=== PATIENT | male | born 1970 | race Caucasian/White ===

== ENCOUNTER 2024-05-22 07:03 | Emergency (ER) | payer OTHER, SELFPAY ==
[2024-05-22 07:07] VITALS: BP 123/76
[2024-05-22 07:22] VITALS: BP 127/80
[2024-05-22 07:26] VITALS: BP 131/82
--- NOTE | 2024-05-22 07:30 | ED.GENMED ---
History of Present Illness
General
Chief Complaint: Dizziness
Time Seen by Provider: 05/22/24 07:16
History of Present Illness
History of Present Illness:
53-year-old male with no known past medical history presents to the emergency department for evaluation of positional dizziness beginning this morning. He states his symptoms strike and whenever he stands up but resolved within a few seconds. No
falls today. Denies any new medications. Notes that he had some nausea and diarrhea earlier in the week but this is since resolved. No chest pain or shortness of breath. Denies any blurry or double vision, neck pain, extremity paresthesias, or
generalized weakness.
Past History
Past History
ED Past Medical History: Hypercholesterolemia and Other (Diverticulitis November 2010)
ED Past Surgical History: Appendectomy and Other (Hernia repair)
Social History
Tobacco: Former smoker
Alcohol: Occasional
Drug: None
Personal:
Living: with family
Employment: Employed
Family History
Family History: Other (Lung cancer, coronary artery disease)
Review of Systems
Review of Systems
Allergies reviewed?: Yes
All Other Systems: ROS reviewed and negative except as documented in HPI and ROS
Phy Exam
Physical Exam
Physical Exam:
GEN: Well appearing, NAD, WDWN
HEENT: Oral mucosa moist, no scleral icterus, no nasal congestion
Cardiac: Regular rate and rhythm, no murmurs
Lung: No respiratory distress, no tachypnea lungs clear to auscultation bilaterally
MSK: No gross deformity or injuries
Skin: Good color, no pallor or jaundice, no rashes
Neuro: AO x3; CN II-XII grossly intact. BUE strength 5/5 in all mari, sensation intact and symmetric. BLE strength 5/5 in all mari, sensation intact and symmetric. Normal [id number] and yuhn-[id number]-mxra. No nystagmus with head tilt test.
Slight instability immediately upon standing but gait is stable thereafter
Psych: Calm, cooperative
Course
Orders/Labs/Results
Orders:
Orders
05/22/24 07:11
Electrocardiogram (*1) Urgent
Reason for Study: Vertigo / Dizzy
EKG- Treatment ONCE
05/22/24 07:30
CT Head W/o Iv Contrast Urgent
Comment:
Reason For Exam: dizziness
0.9% Sodium Chloride 1000 ml [Nss] 1,000 ml IV BOLUS
05/22/24 07:36
Complete Blood Count/With Diff Urgent
Comprehensive Metabolic Panel Urgent
05/22/24 09:20
Orthostatic Vital Signs As Directed
Orthostatic VS Frequency: Daily
05/22/24 09:39
Meclizine [Antivert] 12.5 mg PO Q8HPRN PRN
Abnormal Lab Results
05/22/24
07:36
RBC 4.39 L 10^6/uL
(4.70-6.10)
MCH 32.3 H pg
(27.0-31.0)
BUN 36 H mg/dl
(9-20)
05/22/24 07:36
05/22/24 07:36
Vital Signs
Initial and Last Documented VS:
Initial Vital Signs
Temp Pulse Resp BP Pulse Ox
97.7 F 72 18 123/76 96
05/22/24 07:07 05/22/24 07:07 05/22/24 07:07 05/22/24 07:07 05/22/24 07:07
Last Documented Vital Signs
Temp Pulse Resp BP Pulse Ox
97.7 F 66 14 120/74 96
05/22/24 07:07 05/22/24 10:00 05/22/24 10:00 05/22/24 10:00 05/22/24 10:00
MDM/Problems Addressed
MDM/Problems Addressed:
Interestingly the patient is found to have a nonspecific lesion in the left cerebellum on head CT. Although this may not correlate with his symptoms which sound much more likely to represent positional peripheral vertigo, nevertheless we will admit
the patient for MRI of the brain and neurology consultation
Comment
Comment:
EKG independently interpreted by me shows normal sinus rhythm at a rate of [address] changes concerning for ischemia
*Critical Care Note
Total Time (30-74mins, 75-104mins- exclusive of procedures): Not Applicable
Update Note
Update Note:
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 Reviewed with hospitalist and neurology again, plan for
discharge and outpatient MRI
ED Attending Note
-
Portions of this chart may have been created with voice recognition software.� Occasional wrong word or��sound alike� substitutions may have occurred due to the inherent limitations of voice recognition software.
Discharge Plan
Departure
Patient Disposition: Home (Routine Discharge)
Date of Disposition: 05/22/24
Time of Disposition: 08:52
Patient with high blood pressure during this ER visit?: No
Discharge Problem:
Cerebellar lesion, Vertigo
Prescriptions:
New
meclizine 25 mg tablet
25 mg PO BID PRN (Reason: dizziness) Qty: 20 0RF
No Action
No Current Medications
0
Referrals:
Lexie Sorensen MD [Family Provider] -
Interventions
Interventions:
*Risk Screen - Suicide Last Done: 05/22/24 07:07
*General Assessment Last Done: 05/22/24 07:07
*Neglect/Abuse Screening Last Done: 05/22/24 07:07
*Nursing Disposition Last Done: 05/22/24 11:06
ED- Neurological Assessment Last Done: 05/22/24 07:25
ED- Cardiac Assessment Last Done: 05/22/24 11:06
ED Swallowing Screen Last Done: 05/22/24 10:27
Discharge Date and Time
Discharge Date/Time: 05/22/24 11:10
Print Language: AUSTRALIAN
[2024-05-22] MEDS: NSS 1000 IV (07:38)
[2024-05-22 07:47] LABS: % Basophils 0.6 % (0-2); % Eosinophils 4.2 % (0-6); % Immature Granulocytes 0.2 % (0-0.5); % Lymphocytes 31.5 % (20.5-51.1); % Monocytes 8.1 % (1.7-9.3); % Neutrophils 55.4 % (42.2-75.2); Absolute Eosinophils 0.3 10^3/uL (0-0.7); Absolute Monocytes 0.5 10^3/uL (0.1-0.6); Absolute Neutrophils 3.4 10^3/uL (1.4-6.5); Hematocrit 40.5 % (39.0-52.0); Hemoglobin 14.2 g/dL (13.0-18.0); Mean Corp Hgb Conc. 35.1 g/dL (33.0-37.0); Mean Corpuscular Hgb 32.3 pg (27.0-31.0); Mean Corpuscular Volume 92.3 fL (80.0-94.0); Mean Platelet Volume 9.5 fL (7.4-10.4); Nucleated Red Blood Cells % 0 % (-); Platelet Count 218 10^3/uL (130-400); Red Blood Cell Count 4.39 10^6/uL (4.70-6.10); Red Cell Dist. Width 12.8 % (11.5-14.5); White Blood Cell Count 6.2 10^3/uL (4.8-10.8)
[2024-05-22 07:58] LABS: ALT (SGPT) 22 U/L (0-50); AST (SGOT) 25 U/L (17-59); Albumin 4.5 g/dl (3.5-5.0); Alkaline Phosphatase 55 U/L (38-126); Blood Urea Nitrogen 36 mg/dl (9-20); Calcium 10.1 mg/dl (8.4-10.2); Carbon Dioxide 26 mmol/L (22-30); Chloride 107 mmol/L (98-107); Glucose 96 mg/dl (70-99); Potassium 4.5 mmol/L (3.5-5.1); Sodium 142 mmol/L (135-145); Total Bilirubin 0.6 mg/dl (0.2-1.3); eGFR > 60.00
[2024-05-22 08:11] VITALS: BP 125/66
[2024-05-22 09:00] VITALS: BP 126/85
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
[2024-05-22 10:00] VITALS: BP 120/74
== END 2024-05-22 11:10 | disposition home or self-care (01) ==
LOC: EMR 07:03
PROVIDERS: Physician Assistant; EMERGENCY PHYSICIAN Emergency Medicine; FAMILY PHYSICIAN Internal Medicine
DX: R42 Dizziness and giddiness (principal); G93.9 Disorder of brain, unspecified; E78.00 Pure hypercholesterolemia, unspecified; K57.92 Diverticulitis of intestine, part unspecified, without perforation or abscess without bleeding; K76.0 Fatty (change of) liver, not elsewhere classified; F17.210 Nicotine dependence, cigarettes, uncomplicated; Z87.820 Personal history of traumatic brain injury; Z91.040 Latex allergy status; Z91.048 Other nonmedicinal substance allergy status
CPT/HCPCS: 99284; 96360; 70450; 80053; 85025; 93005